=== PATIENT | female | born 1970 | race Caucasian/White ===

== ENCOUNTER → 2021-01-12 | Outpatient (CLI) | payer MEDICAID ==
[~2021-01-12] MED LIST: BACLOFEN20 MG PO; CELEXA20 MG PO; CLONAZEPAM 1 MG1 M1 PO; LOTENSIN40 MG PO; NEURONTIN 300300 M1 PO; NORCO 5-325 TA1 EACH PO; NORVASC2.5 MG PO; ONDANSETRON HCL4 M2 PO; PRILOSEC40 MG PO; ZANTAC 150MG T150 M1 PO
== END ==
LOC: M.LAB 10:40
PROVIDERS: ATTEND Internal Medicine Gastroenterology
DX: Z01.812 Encounter for preprocedural laboratory examination (principal); Z20.822 Contact with and (suspected) exposure to COVID-19; K21.9 Gastro-esophageal reflux disease without esophagitis; R13.10 Dysphagia, unspecified